=== PATIENT | male | born 1950 | race Caucasian/White ===

== ENCOUNTER 2016-08-18 07:03 | Emergency (ER) | payer BC ==
[~2016-08-18] VITALS: Ht 167.6 cm; Wt 72.6 kg
[2016-08-18] MEDS ORDERED: PANTOPRAZOLE SODIUM 40 MG VIAL IV ONE ×2 (07:15→09:15)
[2016-08-18] MEDS ORDERED: IV NORMAL SALINE 1000 ML BAG IV ONE (07:15)
[2016-08-18] MEDS ORDERED: ONDANSETRON 4 MG/2 ML VIAL IV ONE (07:15)
[2016-08-18] MEDS ORDERED: HYDROMORPHONE 1 MG/1 ML DISP.SYRIN IV ONE ×2 (07:15→09:15)
[2016-08-18] MEDS ORDERED: HYDROMORPHONE 2 MG/1 ML DISP.SYRIN ONE (07:23)
[2016-08-18] MEDS ORDERED: PANTOPRAZOLE SODIUM 40 MG VIAL ONE ×2 (07:23→09:22)
[2016-08-18] MEDS ORDERED: ONDANSETRON 4 MG/2 ML VIAL ONE ×2 (07:23→09:22)
[2016-08-18 07:27] LABS: HEMATOCRIT 45.9 % (40.0-50.0); MEAN CORPUSCULAR HEMOGLOBIN 28.4 uug (27.0-31.0); MEAN CORPUSCULAR HGB CONC 33 g/dL (32.0-37.0); PLATELET COUNT (AUTO) 241 K/uL (150-450); RED BLOOD CELL COUNT(AUTO) 5.28 MIL/uL (4.70-6.10); RED CELL DISTRIBUTION WIDTH 13.6 % (11.5-14.5); WHITE BLOOD COUNT (AUTO) 8.3 K/uL (4.0-11.2)
--- NOTE | 2016-08-18 07:30 | NUR ---
PT IS IN ROOM #1A. DR CLEVELADN EVALUATED THE PT.
[2016-08-18] MEDS ORDERED: CRESTOR (07:32)
[2016-08-18] MEDS ORDERED: ASPI-612 PO (07:32)
[2016-08-18] MEDS ORDERED: PREVACID (07:32)
[2016-08-18 07:40] LABS: CALCIUM 9.4 mg/dL (8.5-10.1); CREATININE 1.2 mg/dL (0.6-1.3)
[2016-08-18 07:43] LABS: TROPONIN I < 0.017 ng/mL (0.00-0.056)
[2016-08-18 07:45] LABS: ALBUMIN 4.1 g/dL (3.4-5.0); BILIRUBIN,DIRECT 0.1 mg/dL (0.0-0.2); BILIRUBIN,TOTAL 0.4 mg/dL (0.2-1.0); TOTAL PROTEIN, SERUM 8.2 g/dL (6.4-8.2)
[2016-08-18 08:00] LABS: LACTIC ACID 1.9 mmol/L (0.4-2.0)
[2016-08-18 08:25] LABS: BAND % (MANUAL) 7 % (0-10); EOSINOPHILS % (MANUAL) 6 % (0-8); LYMPHOCYTES % (MANUAL) 12 % (20-40); MONOCYTES % (MANUAL) 9 % (2-10); NEUTROPHILS % (MANUAL) 66 % (42-75); PLATELET ESTIMATE ADEQUATE
[2016-08-18] MEDS ORDERED: ONDANSETRON IV *ER 4 MG/2 ML VIAL IV ONE (09:15)
[2016-08-18] MEDS ORDERED: HYDROMORPHONE 1 MG/1 ML DISP.SYRIN ONE (09:22)
--- NOTE | 2016-08-18 09:27 | NUR ---
pt was d/c to home . d/c instructions given to the pt.
[2016-08-18 09:28] VITALS: BP 152/81
[2016-08-18] MEDS ORDERED: LOSA100T15 (19:33)
[2016-08-18] MEDS ORDERED: CARV3.122 (19:33)
[2016-08-18] MEDS ORDERED: LANS30CA56 (19:33)
== END 2016-08-18 09:29 | disposition home or self-care (01) ==
LOC: ER 07:04
DX: K29.70 Gastritis, unspecified, without bleeding (principal); I25.810 Atherosclerosis of coronary artery bypass graft(s) without angina pectoris
CPT/HCPCS: 36415; 71010; 74176; 80048; 80076; 83605; 83690; 84484; 85025; 85730; 87040; 93005; 96361; 96374; 96375; 96376; 99285; A4663; C9113 ×2; J1170 ×2; J2405 ×2; J7030; 70030-TC

== ENCOUNTER 2016-08-18 19:10 | Inpatient (IN) | payer BC ==
[~2016-08-18] VITALS: Ht 167.6 cm; Wt 80.7 kg
[~2016-08-18 19:10] MED LIST: ASPI-612 PO; CRESTOR; PREVACID
[2016-08-18] MEDS ORDERED: HYDROMORPHONE 1 MG/1 ML DISP.SYRIN IV ONE ×2 (19:30→21:30)
[2016-08-18] MEDS ORDERED: ONDANSETRON 4 MG/2 ML VIAL IV ONE (19:30)
[2016-08-18] MEDS ORDERED: CARV3.122 (19:33)
[2016-08-18] MEDS ORDERED: LANS30CA56 (19:33)
[2016-08-18] MEDS ORDERED: LOSA100T15 (19:33)
--- NOTE | 2016-08-18 19:39 | NUR ---
ekg done, lab christina blood, m,eds adminiostered, nsr on monitor, pt rec's diluadid and zofran iv, monitor a=shows nsr, iv placed.
[2016-08-18] MEDS ORDERED: HYDROMORPHONE 1 MG/1 ML DISP.SYRIN ONE ×2 (19:40→21:24)
[2016-08-18] MEDS ORDERED: ONDANSETRON 4 MG/2 ML VIAL ONE ×2 (19:40→21:24)
[2016-08-18 20:02] LABS: CALCIUM 8.9 mg/dL (8.5-10.1); CREATININE 1.1 mg/dL (0.6-1.3); POTASSIUM 3.8 mmol/L (3.5-5.1)
[2016-08-18 20:07] LABS: TROPONIN I < 0.017 ng/mL (0.00-0.056)
[2016-08-18 20:10] LABS: HEMATOCRIT 44.1 % (40.0-50.0); HEMOGLOBIN 14.6 g/dL (14.0-18.0); MEAN CORPUSCULAR HEMOGLOBIN 28.5 uug (27.0-31.0); MEAN CORPUSCULAR HGB CONC 33 g/dL (32.0-37.0); MEAN CORPUSCULAR VOLUME 86.3 fL (82.0-92.0); PLATELET COUNT (AUTO) 219 K/uL (150-450); RED BLOOD CELL COUNT(AUTO) 5.11 MIL/uL (4.70-6.10); RED CELL DISTRIBUTION WIDTH 13.6 % (11.5-14.5); WHITE BLOOD COUNT (AUTO) 14.6 K/uL (4.0-11.2)
[2016-08-18 20:12] LABS: ALBUMIN 3.8 g/dL (3.4-5.0); BILIRUBIN,DIRECT 0.1 mg/dL (0.0-0.2); BILIRUBIN,TOTAL 0.5 mg/dL (0.2-1.0); TOTAL PROTEIN, SERUM 7.6 g/dL (6.4-8.2)
[2016-08-18 20:14] LABS: LACTIC ACID 1.4 mmol/L (0.4-2.0)
[2016-08-18 20:38] LABS: BAND % (MANUAL) 10 % (0-10); LYMPHOCYTES % (MANUAL) 11 % (20-40); MONOCYTES % (MANUAL) 5 % (2-10); NEUTROPHILS % (MANUAL) 74 % (42-75); PLATELET ESTIMATE ADEQUATE
[2016-08-18] MEDS ORDERED: IOHEXOL 350 100 ML INFUS..BTL ONE (20:44)
[2016-08-18] MEDS ORDERED: DEXTROSE 5% IV PRN (20:45)
[2016-08-18] MEDS ORDERED: IV NORMAL SALINE 1000 ML BAG IV ONE (20:45)
[2016-08-18] MEDS ORDERED: LABETALOL HCL IV PRN (20:45)
[2016-08-18] MEDS ORDERED: LABETALOL HCL 100 MG/20 ML VIAL IV ONE (20:45)
[2016-08-18] MEDS ORDERED: LABETALOL HCL 100 MG/20 ML VIAL ONE (21:08)
--- NOTE | 2016-08-18 21:13 | NUR ---
pt return from ct scan, monitor shows nsr.
[2016-08-18] MEDS ORDERED: ONDANSETRON IV *ER 4 MG/2 ML VIAL IV ONE (21:30)
[2016-08-18] MEDS ORDERED: PIPERACILLIN SODIUM/TAZOBACTAM 3.375 G in IV DEXTROSE 5% 50 ML IV ONE (22:30)
--- NOTE | 2016-08-18 22:35 | NUR ---
DR CARLIN SPOKE TO DR CORTES AT [id number] BECK PAGED. PT RESTING, NSR ON MONITOR.
[2016-08-18] MEDS ORDERED: PIPERACILLIN/TAZOBACTAM/D5W 50 ML IV ONE (22:47)
[2016-08-18] MEDS ORDERED: MORPHINE SULFATE 2 MG/1 ML DISP.SYRIN IV PRN (23:00)
[2016-08-18] MEDS ORDERED: ONDANSETRON 4 MG/2 ML VIAL IV PRN (23:00)
[2016-08-18] MEDS ORDERED: ACETAMINOPHEN 650 MG SUPP.RECT RC PRN (23:00)
[2016-08-18] MEDS ORDERED: POTASSIUM CHLORIDE 20 MEQ in IV D5 1/2 NS 1000 ML 1,000 ML IV PRN (23:00)
--- NOTE | 2016-08-18 23:00 | NUR ---
SBAR REPORT TO ROXANA YANCEY, BELONGINGS LIST DONE, PT RESTING. ADMIT ORDER WRITTEN, NO SKIN BREAKDOWN NOTED.
--- NOTE | 2016-08-18 23:09 | NUR ---
PT TO ROOM 218 VIA ESTHER/MONITOR
--- NOTE | 2016-08-18 23:30 | NUR ---
PATIENT BROUGHT IN VIS STRETCHER ADMITTED TO TELE WITH DX CHOLECYSTITIS. C/O OF VINNIE WHITLOCK 02/03. PATIENT A O X 4. NO N/V. FAMILY WITH THE PATIENT. PATIENT ON NPO PER MD.NSR ON THE MONITORWILL CONTINUE TO MONITOR
[2016-08-18] MEDS: MORPHINE SULFATE 2 MG/1 ML DISP.SYRIN IV PRN (23:32)
[2016-08-18 23:38] VITALS: BP 145/84
[2016-08-18] MEDS ORDERED: MORPHINE SULFATE 4 MG/1 ML DISP.SYRIN ONE (23:40)
--- NOTE | 2016-08-18 23:50 | NUR ---
PAIN MEDICATION ADMINISTERED PER ORDER. PATIENT CONTINUING NPO. CALL LIGHT IN REACH.
[2016-08-19] MEDS ORDERED: PIPERACILLIN/TAZOBACTAM/D5W 50 ML IV ONE (00:53)
[2016-08-19] MEDS ORDERED: POTASSIUM CHLORIDE 0 ML ONE (01:30)
[2016-08-19 04:00] VITALS: BP 110/59
[2016-08-19] MEDS: PIPERACILLIN/TAZOBACTAM/D5W 3.375 G in PREMIXED 1 EACH IV SCH ×3 (05:40→21:35)
--- NOTE | 2016-08-19 06:29 | NUR ---
PATIENT CONTINUING NPO. IV FLUID INFUSING ORDERED. NO C/O OF PAIN AT THIS TIME. SLEPT ABOUT 5 HRS. NO N/V. PATIENT AMBULATORY AND USES REST ROOM WITH OUT ASSISTANCE. CALL LIGHT IN REACH.
--- NOTE | 2016-08-19 06:34 | NUR ---
NSR ON THE MONITOR .
--- NOTE | 2016-08-19 07:29 | NUR ---
pt is sleeping in bed comfortably. no s/s of respiratory distress noted. no pain noted. all safety needs are met. will continue to monitor.
[2016-08-19 07:39] LABS: HEMATOCRIT 41.6 % (40.0-50.0); HEMOGLOBIN 13.9 g/dL (14.0-18.0); MEAN CORPUSCULAR HEMOGLOBIN 29.1 uug (27.0-31.0); MEAN CORPUSCULAR HGB CONC 33 g/dL (32.0-37.0); PLATELET COUNT (AUTO) 193 K/uL (150-450); RED BLOOD CELL COUNT(AUTO) 4.78 MIL/uL (4.70-6.10); RED CELL DISTRIBUTION WIDTH 14.1 % (11.5-14.5); WHITE BLOOD COUNT (AUTO) 13.9 K/uL (4.0-11.2)
[2016-08-19] MEDS: PANTOPRAZOLE SODIUM 40 MG VIAL IV SCH (08:01)
[2016-08-19] MEDS: MORPHINE SULFATE 2 MG/1 ML DISP.SYRIN IV PRN (08:02)
[2016-08-19 08:07] LABS: ALBUMIN 3.1 g/dL (3.4-5.0); BILIRUBIN,TOTAL 0.5 mg/dL (0.2-1.0); CALCIUM 8.3 mg/dL (8.5-10.1); CREATININE 1.1 mg/dL (0.6-1.3); MAGNESIUM 1.4 mg/dL (1.8-2.4); PHOSPHOROUS 2.7 mg/dL (2.5-4.9); TOTAL PROTEIN, SERUM 6.6 g/dL (6.4-8.2)
[2016-08-19] MEDS ORDERED: DESFLURANE ANESTHESIA GAS 240 ML BOTTLE IH ONE (08:13)
[2016-08-19] MEDS ORDERED: PROPOFOL 200 MG/20 ML BOTTLE IV ONE (08:13)
[2016-08-19] MEDS ORDERED: NEOSTIGMINE METHYLSULFATE 10 MG/10 ML VIAL IV ONE (08:14)
[2016-08-19] MEDS ORDERED: CEFAZOLIN 1 G VIAL MC ONE (08:15)
[2016-08-19] MEDS ORDERED: GLYCOPYRROLATE 0.2 MG/ML VIAL MC ONE (08:15)
[2016-08-19] MEDS ORDERED: DEXAMETHASONE SOD PHOSPHATE 4 MG INJ IV ONE (08:16)
[2016-08-19] MEDS ORDERED: KETOROLAC TROMETHAMINE 30 MG INJ IM ONE (08:17)
[2016-08-19] MEDS ORDERED: LIDOCAINE HCL 1% 20 ML VIAL MC ONE (08:17)
[2016-08-19] MEDS ORDERED: ONDANSETRON 4 MG/2 ML VIAL IV ONE (08:17)
[2016-08-19] MEDS ORDERED: IRR NORMAL SALINE IRRIGATION 1,000 ML BOTTLE IR ONE (08:18)
[2016-08-19] MEDS ORDERED: IV NORMAL SALINE 1000 ML BAG IV ONE (08:18)
[2016-08-19] MEDS ORDERED: IV LACTATED RINGERS SOLUTION 1,000 ML BAG IV ONE (08:18)
[2016-08-19 09:59] LABS: THYROID STIMULATING HORMONE 0.896 mIU/mL (0.358-3.740)
[2016-08-19] MEDS: MAGNESIUM SULFATE/D5W 100 ML IV SCH ×2 (10:19→11:13)
[2016-08-19 10:54] LABS: *BILIRUBIN,URIN NEGATIVE (NEGATIVE); *BLOOD, URINE Trace-lysed (NEGATIVE); *CLARITY,URINE CLEAR (CLEAR); *COLOR,URINE YELLOW (YELLOW); *KETONES,URINE NEGATIVE (NEGATIVE); *PROTEIN,URINE NEGATIVE (NEGATIVE); *UROBILINOGEN,URINE 0.2 E.U./dl (NORMAL); LEUKOCYTE ESTERASE ,URINE NEGATIVE (NEGATIVE); NITRITE, URINE NEGATIVE (NEGATIVE); UGLUCOSE NEGATIVE (NEGATIVE)
[2016-08-19 11:03] LABS: BACTERIA,URINE NONE SEEN /HPF (NONE SEEN); RBC,URINE 0-3 /HPF (0-3); SQUAMOUS EPITHELIAL CELL,UR NONE SEEN /HPF (NONE SEEN); WBC,URINE 0-3 /HPF (0-3)
[2016-08-19] MEDS ORDERED: BUPIVACAINE 0.25% 30 ML VIAL ONE (11:25)
--- NOTE | 2016-08-19 11:30 | NUR ---
advised or nurses that pt's temperature is 99.7. OR nurses took the patient to OR, accompanied by pt's family.
[2016-08-19 11:51] VITALS: BP 112/60
[2016-08-19 12:11] LABS: BASOPHILS % (AUTO) 0.2 % (0.0-2.0); EOSINOPHILS % (AUTO) 0.6 % (0.0-7.0); LYMPHOCYTES % (AUTO) 10.8 % (20.5-51.5); NEUTROPHILS % (AUTO) 78.4 % (38.5-71.5)
[2016-08-19] MEDS ORDERED: FENTANYL CITRATE 100 MCG/2 ML AMPUL ONE (12:51)
[2016-08-19] MEDS ORDERED: HYDROMORPHONE 2 MG/1 ML DISP.SYRIN ONE (12:51)
[2016-08-19] MEDS ORDERED: ROCURONIUM BROMIDE 50 MG/5 ML VIAL ONE (12:51)
[2016-08-19] MEDS ORDERED: SUCCINYLCHOLINE CHLORIDE 200 MG/10 ML VIAL ONE (12:51)
[2016-08-19] MEDS ORDERED: IV D5W-0.45% NS +20 KCL 1,000 ML IV ONE (14:51)
--- NOTE | 2016-08-19 15:10 | NUR ---
PT CAME BACK FROM SURGERY. NO S/S OF RESPIRATORY DISTRESS NOTED. NO PAIN NOTED. DRESSINGS ARE INTACT/DRY. 3 DRESSING NOTED ON PT'S ABDOMEN. ABDOMEN IS SOFT. ELOISA DRAIN IS NOTED ON RIGHT LATERAL SIDE IS NOTED WITH SEROSANGUINEOUS FLUID/ SCANT AMOUNT. INCENTIVE SPIROMETER IS GIVEN TO PT, EDUCATION ON IS IS PROVIDED. V/S WNL. ALL SAFETY NEEDS ARE MET. CHASITY HOSES ARE APPLIED PER DR'S ORDER. PT'S FAMILY BY THE BEDSIDE.
[2016-08-19] MEDS ORDERED: HYDROCODONE/APAP 5-325MG TABLET PO PRN (15:15)
[2016-08-19 16:12] VITALS: BP 106/69
--- NOTE | 2016-08-19 19:30 | NUR ---
Patient lying in bed awake, no s/s of distress. No complaints of pain at this time. Will continue to monitor.
[2016-08-19] MEDS: POTASSIUM CHLORIDE 20 MEQ in IV D5 1/2 NS 1000 ML 1,000 ML IV PRN (19:37)
--- NOTE | 2016-08-19 19:44 | NUR ---
PT IS LAYING COMFORTABLY IN BED. NO S/S OF RESPIRATORY DISTRESS NOTED. NO PAIN NOTED. ALL SAFETY NEEDS ARE MET. ELOISA DRAIN DRAINS SEROSANGUINEOUS FLUID. FAMILY BY THE BEDSIDE.
[2016-08-19 20:00] VITALS: BP 105/70
--- NOTE | 2016-08-19 21:00 | NUR ---
ABLE TO AMBULATE AROUND THE UNIT ALONG WITH SON. TOLERATED WELL. NO COMPLAINTS OF PAIN NOR DISCOMFORT.
[2016-08-20] VITALS: BP 101/63
[2016-08-20 04:00] VITALS: BP 132/77
[2016-08-20] MEDS: PIPERACILLIN/TAZOBACTAM/D5W 3.375 G in PREMIXED 1 EACH IV SCH ×3 (05:41→21:37)
[2016-08-20] MEDS: MORPHINE SULFATE 2 MG/1 ML DISP.SYRIN IV PRN (05:49)
--- NOTE | 2016-08-20 06:00 | NUR ---
STATED ABLE TO PASS GAS. ABLE TO AMBULATE WITH NO DIFFICULTY. CONTINUE TO ENCOURAGE USING IS.
[2016-08-20] MEDS: PANTOPRAZOLE SODIUM 40 MG VIAL IV SCH (06:04)
--- NOTE | 2016-08-20 06:10 | NUR ---
MRSA (ASIYA) SPECIMEN COLLECTED, SENT TO NUMERICAL CONTROL OPERATOR Addendum: 08/20/16 at 0653 by LOGAN CRESPO RN WRONG ENTRY
--- NOTE | 2016-08-20 06:38 | NUR ---
Patient resting in bed, no s/s of distress noted. No complaints of pain at this time. Call light kept within reach. Frequent checks done. Due meds given. Endorsed accordingly.
[2016-08-20 07:02] LABS: ALBUMIN 2.9 g/dL (3.4-5.0); BILIRUBIN,TOTAL 0.4 mg/dL (0.2-1.0); CALCIUM 8.8 mg/dL (8.5-10.1); CREATININE 1.2 mg/dL (0.6-1.3); POTASSIUM 4.7 mmol/L (3.5-5.1); TOTAL PROTEIN, SERUM 6.8 g/dL (6.4-8.2)
[2016-08-20 07:09] LABS: HEMATOCRIT 41.6 % (40.0-50.0); HEMOGLOBIN 13.4 g/dL (14.0-18.0); MEAN CORPUSCULAR HEMOGLOBIN 28.4 uug (27.0-31.0); MEAN CORPUSCULAR HGB CONC 32 g/dL (32.0-37.0); MEAN CORPUSCULAR VOLUME 88.2 fL (82.0-92.0); PLATELET COUNT (AUTO) 221 K/uL (150-450); RED BLOOD CELL COUNT(AUTO) 4.72 MIL/uL (4.70-6.10); RED CELL DISTRIBUTION WIDTH 14.2 % (11.5-14.5); WHITE BLOOD COUNT (AUTO) 12.7 K/uL (4.0-11.2)
--- NOTE | 2016-08-20 08:00 | NUR ---
awake alert and oriented, denies of pain, on r/a, lap scope sites x 3- clean and dry, ELOISA drain compressed for suction- draining serosanguineous drainage, Tele SR 70's, explained plan of care- verbalized understanding, call lite within reach.
--- NOTE | 2016-08-20 10:00 | NUR ---
ambulated in the hallway-tolerated well
[2016-08-20 10:31] LABS: EOSINOPHILS % (MANUAL) 1 % (0-8); LYMPHOCYTES % (MANUAL) 8 % (20-40); MONOCYTES % (MANUAL) 3 % (2-10); NEUTROPHILS % (MANUAL) 88 % (42-75)
[2016-08-20 10:32] LABS: PLATELET ESTIMATE ADEQUATE
[2016-08-20 11:18] VITALS: BP 107/61
--- NOTE | 2016-08-20 12:00 | NUR ---
taking diet fairly, denies of pain, family at bedside, been ambulating in akbar way-tolerated well
[2016-08-20 15:15] VITALS: BP 102/62
[2016-08-20] MEDS: POTASSIUM CHLORIDE 20 MEQ in IV D5 1/2 NS 1000 ML 1,000 ML IV PRN (16:32)
--- NOTE | 2016-08-20 18:15 | NUR ---
resting in bed, denies of pain, output from ELOISA drain -40 ml, family at bedside, no distress noted,call safety measures maintained Addendum: 08/20/16 at 1817 by KIET ANTONIO RN passing gas but no BM yet
[2016-08-20 20:00] VITALS: BP 119/65
[2016-08-21 05:00] VITALS: BP 153/92
[2016-08-21] MEDS: PIPERACILLIN/TAZOBACTAM/D5W 3.375 G in PREMIXED 1 EACH IV SCH ×3 (05:28→21:12)
[2016-08-21] MEDS: MORPHINE SULFATE 2 MG/1 ML DISP.SYRIN IV PRN ×2 (05:29→08:14)
[2016-08-21] MEDS: PANTOPRAZOLE SODIUM 40 MG TABLET.DR PO SCH (06:31)
[2016-08-21] MEDS ORDERED: MAG HYDROX/AL HYDROX/SIMETH 30 ML LIQUID UDC PO PRN ×2 (06:45→07:00)
--- NOTE | 2016-08-21 07:00 | NUR ---
PT SLEPT INTERMITTENTLY DURING SHIFT, C/O SEVERE ABDOMINAL PAIN, WAS GIVEN MS PRESCRIBED, BUT STATED NOT HELPING. WAS NOW GIVEN WITH MAALOX PRESCRIBED. PT WAS ENCOURAGE TO AMBULATE IN THE HALLWAY. STATED BURPING A LOT BUT, NOT PASSING GAS. ELOISA DRAINED PATENT AND INTACT, EMPTIED 25 CC SEROSANGUINEOUS FLUID. SAFETY MAINTAINED. CALL LIGHT WITHIN REACH.
[2016-08-21 07:11] LABS: ALBUMIN 3.1 g/dL (3.4-5.0); BILIRUBIN,TOTAL 0.4 mg/dL (0.2-1.0); CALCIUM 8.6 mg/dL (8.5-10.1); CREATININE 1.2 mg/dL (0.6-1.3); MAGNESIUM 1.9 mg/dL (1.8-2.4); PHOSPHOROUS 2.7 mg/dL (2.5-4.9); POTASSIUM 4.4 mmol/L (3.5-5.1); TOTAL PROTEIN, SERUM 7.4 g/dL (6.4-8.2)
[2016-08-21 07:16] LABS: BASOPHILS % (AUTO) 0.4 % (0.0-2.0); EOSINOPHILS # (AUTO) 0.3 K/uL (0.0-0.7); EOSINOPHILS % (AUTO) 3.8 % (0.0-7.0); HEMATOCRIT 42.8 % (40.0-50.0); LYMPHOCYTES # (AUTO) 1.3 K/uL (0.8-4.8); LYMPHOCYTES % (AUTO) 15.3 % (20.5-51.5); MEAN CORPUSCULAR HEMOGLOBIN 28.7 uug (27.0-31.0); MEAN CORPUSCULAR HGB CONC 33 g/dL (32.0-37.0); MEAN CORPUSCULAR VOLUME 87.7 fL (82.0-92.0); MONOCYTES # (AUTO) 0.4 K/uL (0.1-1.30); MONOCYTES % (AUTO) 5.4 % (0.0-11.0); NEUTROPHILS # (AUTO) 6.2 K/uL (1.8-8.9); NEUTROPHILS % (AUTO) 75.1 % (38.5-71.5); PLATELET COUNT (AUTO) 210 K/uL (150-450); RED BLOOD CELL COUNT(AUTO) 4.88 MIL/uL (4.70-6.10); RED CELL DISTRIBUTION WIDTH 14.1 % (11.5-14.5); WHITE BLOOD COUNT (AUTO) 8.2 K/uL (4.0-11.2)
--- NOTE | 2016-08-21 08:10 | NUR ---
in bed, c/o abdominal pain 10/10 moaning and holding abdomen, firm and distended, states burping but not passing gas, started at 0400, medicated with Morphine 4mg iv as prn, ELOISA drain with serosanguineous drainage, bulb compressed for suction, instructed that when pain subsides, he has to ambulate in the hallway- verbalized understanding. Safety measures maintained, call light within reach
[2016-08-21] MEDS: POTASSIUM CHLORIDE 20 MEQ in IV D5 1/2 NS 1000 ML 1,000 ML IV PRN (08:21)
[2016-08-21] MEDS ORDERED: FLEET ENEMA 133 ML BOTTLE RC ONE (09:00)
[2016-08-21] MEDS ORDERED: MORPHINE SULFATE 4 MG/1 ML DISP.SYRIN IV PRN (09:00)
--- NOTE | 2016-08-21 09:20 | NUR ---
seen by Dr Brantley here- informed of pt's complaints- orders given
--- NOTE | 2016-08-21 09:40 | NUR ---
dulcolax i tab po and fleets enema given with good result, states pain lesser
[2016-08-21] MEDS: BISACODYL 5 MG TABLET.DR PO SCH ×2 (09:41→17:47)
[2016-08-21 11:35] VITALS: BP 125/79
[2016-08-21] MEDS ORDERED: MORPHINE SULFATE 2 MG/1 ML DISP.SYRIN IV ONE (12:00)
--- NOTE | 2016-08-21 12:05 | NUR ---
still c/o severe abdominal pain- Dr Douglas at bedside with order- Morphine 2mg iv given
--- NOTE | 2016-08-21 12:40 | NUR ---
called Dr Brantley and relayed result- no order given
--- NOTE | 2016-08-21 13:30 | NUR ---
states pain is relieved, ambulating in the hallway with family- tolerated well
[2016-08-21 15:30] VITALS: BP 128/68
--- NOTE | 2016-08-21 17:50 | NUR ---
ELOISA output 150 ml- brownish yellowish in color, called Dr Brantley and informed of output and color- continue to monitor, pt ambulating in the akbar way- denies of pain, no nausea, abdomen less distended, all needs attended and met, call light within reach
[2016-08-21 20:00] VITALS: BP 132/89
[2016-08-22] MEDS: POTASSIUM CHLORIDE 20 MEQ in IV D5 1/2 NS 1000 ML 1,000 ML IV PRN (02:37)
[2016-08-22 04:19] VITALS: BP 158/76
--- NOTE | 2016-08-22 04:54 | NUR ---
PT IN BED ASLEEP, AROUSABLE TO TOUCH AND NAME, IN NO ACUTE SIGNS OF DISTRESS, DENIES PAIN AT THIS TIME. NO NAUSEA, NO C/O GAS PAIN. PT HAD SOFT BM X1 AND STATED PASSING LOTS OF GAS. DURING SHIFT. ELOISA DRAIN PATENT INTACT, EMPTIED 25CC BROWNISH- YELLOWISH FLUID. IVF STILL INFUSING. SAFETY MAINTAINED. CALL LIGHT WITHIN REACH.
[2016-08-22] MEDS: PIPERACILLIN/TAZOBACTAM/D5W 3.375 G in PREMIXED 1 EACH IV SCH ×2 (05:38→14:20)
[2016-08-22] MEDS: PANTOPRAZOLE SODIUM 40 MG TABLET.DR PO SCH (06:03)
--- NOTE | 2016-08-22 07:42 | NUR ---
PT IS LAYING IN BED COMFORTABLY. NO S/S OF RESPIRATORY DISTRESS NOTE. ALL SAFETY NEEDS ARE MET. NO PAIN NOTED. WILL CONTINUE TO MONITOR. ELOISA DRAIN IS INTACT/PATENT. NO PAIN NOTED.
[2016-08-22 11:14] VITALS: BP 146/80
--- NOTE | 2016-08-22 12:19 | NUR ---
CHANGED ELOISA DRESSING
--- NOTE | 2016-08-22 12:30 | NUR ---
DR. CORTES ASSESSED THE PT AND CLEARED THE PT FOR D/C. PINK-YELLOW FLUID IS NOTED IN ELOISA DRAIN, PT IS EDUCATED ON ELOISA DRAIN CARE. PER DR. CORTES "LEAVE THE ELOISA DRAIN IN PLACE UP UNTIL I SEE YOU IN 1 WEEK F/U DEB-NT." DR. SANDERS IS MADE AWARE. DR. CORTES WANTS THE PT TO HAVE HOME HEALTH BURSE TO F/U WITH PT'S CARE AT HOME.
[2016-08-22] MEDS ORDERED: HYDR-3326 PO (14:50)
[2016-08-22] MEDS ORDERED: CEPH-570 PO (14:50)
[2016-08-22 15:11] VITALS: BP 135/87
--- NOTE | 2016-08-22 16:00 | NUR ---
PT IS DISCHARGED. SCANT FLUID IS NOTED IN ELOISA DRAIN 15 ML CAME OUT SINCE 700 A.M. THE FLUID IN ELOISA DRAIN IS PINK-YELLOW IN COLOR. THE DRESSINGS DRY/CLEAN. PT REFUSED TO BE DISCHARGED VIA WHEELCHAIR. IV IS REMOVED, PRESCRIPTION IS GIVEN. HOME HEALTH PHONE NUMBER IS PROVIDED ALONG WITH DR. CORTES'S MEDICAL OFFICE CONTACT INFORMATION. PT IS REPORTED NOT TO BE DIZZY OR WEAK, NO PAIN REPORTED. IS ACCOMPANIED THE PT. ALL BELONGING ARE TAKEN WITH THE PT.
== END 2016-08-22 16:00 | disposition home health service (06) | DRG 418 ==
LOC: ER 19:12 → TELE 22:42 → MED 08-20 19:54
PROVIDERS: ADMIT Internal Medicine; ATTEND Internal Medicine
PROC: 0FT44ZZ Resection of Gallbladder, Percutaneous Endoscopic Approach (ICD-10-PCS; principal; 2016-08-19 12:45)
DX: K80.00 Calculus of gallbladder with acute cholecystitis without obstruction (principal); I74.5 Embolism and thrombosis of iliac artery; I25.10 Atherosclerotic heart disease of native coronary artery without angina pectoris; Z95.1 Presence of aortocoronary bypass graft; Z86.73 Personal history of transient ischemic attack (TIA), and cerebral infarction without residual deficits; K76.0 Fatty (change of) liver, not elsewhere classified; Z87.891 Personal history of nicotine dependence; K29.70 Gastritis, unspecified, without bleeding; M51.16 Intervertebral disc disorders with radiculopathy, lumbar region; R91.8 Other nonspecific abnormal finding of lung field; I51.7 Cardiomegaly; I10 Essential (primary) hypertension; I73.9 Peripheral vascular disease, unspecified; R73.03 Prediabetes; Z82.49 Family history of ischemic heart disease and other diseases of the circulatory system
CPT/HCPCS: 36415; 70030-TC; 71010; 74000; 82378; 83605; 83735; 84100; 84443; 85025; 85730; 87040; 87070; 87075; 93005; 93307; A4217; A4663; C9113; J0330; J0690; J1100; J1170; J1885; J2270; J2405; J2543; J2710; J3010; J3475; J3480; J3490; J7030; J7060; J7120; Q9967